=== PATIENT | female | born 1970 | race Caucasian/White ===

== ENCOUNTER → 2019-05-09 | Outpatient (REF) | payer BC ==
[2019-05-09 15:15] LABS: ALT/SGPT 19 U/L (12-78); BILIRUBIN,TOTAL 0.3 MG/DL (0.2-1.0); BLOOD UREA NITROGEN 11 MG/DL (7-18); CALCIUM LEVEL 8.9 MG/DL (8.5-10.1); CARBON DIOXIDE LEVEL 27 MEQ/L (21-32); CHLORIDE LEVEL 107 MEQ/L (98-107); CHOLESTEROL LEVEL 184 MG/DL (<200); CHOLESTEROL RISK RATIO 1.896 (<5); CREATININE FOR GFR 0.66 MG/DL (0.55-1.30); GLOMERULAR FILTRATION RATE > 60.0 (>51); GLUCOSE, FASTING 95 MG/DL (70-100); HDL CHOLESTEROL 97 MG/DL (>40); LDL CHOLESTEROL 72 MG/DL (<100); NON-HDL-C 87 MG/DL; POTASSIUM SERUM 4.4 MEQ/L (3.5-5.1); SODIUM LEVEL 142 MEQ/L (136-145); THYROID STIMULATING HORMONE 0.032 uIU/ML (0.358-3.740); TOTAL PROTEIN 6.9 GM/DL (6.4-8.2); TRIGLYCERIDES LEVEL 74 MG/DL (<150)
== END ==
LOC: M SFHCPLAZ 10:06
PROVIDERS: ATTEND Nurse Practitioner Adult Health
DX: Z00.00 Encounter for general adult medical examination without abnormal findings (principal); Z13.220 Encounter for screening for lipoid disorders

== ENCOUNTER → 2019-06-01 | Outpatient (CLI) | payer BC ==
--- NOTE | 2019-06-01 12:09 | REP ---
Clinical: Palpable thyroid. Technique: Real time long scale and color evaluation using linear high frequency transducer. Findings: Right thyroid lobe measures 5.8 x 2.5 x 2.3 cm and includes multiple nonspecific complex isoechoic and hypoechoic nodules including isoechoic lower pole nodule measuring 3.0 x 2.0 x 3.1 cm and complex hypoechoic mid/upper pole nodules measuring 1.4 x 0.9 x 0.8 cm and 1.2 x 1.0 x 0.7 cm. Left thyroid lobe measures 5.8 x 1.8 x 1.8 cm and includes multiple nonspecific complex isoechoic and hypoechoic nodules including isoechoic mid pole nodule measuring 0.8 x 0.6 x 0.7 cm and complex hypoechoic mid pole nodule measuring 1.4 x 1.1 x 0.7 cm. Isthmus measures 2.9 mm in width. Impression: Bilateral complex nodules. Electronically Signed by Scotty Gastelum MD 06/01/2019 12:01 P
== END ==
LOC: M RAD 11:12
PROVIDERS: ATTEND Nurse Practitioner Adult Health
DX: E07.9 Disorder of thyroid, unspecified (principal)

== ENCOUNTER → 2019-07-19 | Outpatient (REF) | payer BC ==
[2019-07-19 18:21] LABS: FREE T4 0.97 NG/DL (0.76-1.46); THYROID STIMULATING HORMONE 0.059 uIU/ML (0.358-3.740)
== END ==
LOC: M LABDRAW1 16:48
PROVIDERS: ATTEND Internal Medicine Endocrinology, Diabetes & Metabolism
DX: E05.20 Thyrotoxicosis with toxic multinodular goiter without thyrotoxic crisis or storm (principal)

== ENCOUNTER → 2019-08-21 | Outpatient (REF) | payer BC | LOC: M LABDRAW1 15:23 | PROVIDERS: ATTEND Internal Medicine Endocrinology, Diabetes & Metabolism | DX: E05.20 Thyrotoxicosis with toxic multinodular goiter without thyrotoxic crisis or storm (principal) ==

== ENCOUNTER → 2019-09-04 | Outpatient (REF) | payer BC | LOC: M LAB REF 18:37 | PROVIDERS: ATTEND Internal Medicine Endocrinology, Diabetes & Metabolism | DX: E04.2 Nontoxic multinodular goiter (principal) ==

== ENCOUNTER → 2019-11-16 | Outpatient (REF) | payer BC ==
[2019-11-16 14:37] LABS: BLOOD UREA NITROGEN 10 MG/DL (7-18); CALCIUM LEVEL 9.6 MG/DL (8.5-10.1); CARBON DIOXIDE LEVEL 30 MEQ/L (21-32); CHLORIDE LEVEL 108 MEQ/L (98-107); CREATININE FOR GFR 0.58 MG/DL (0.55-1.30); FREE T4 0.93 NG/DL (0.76-1.46); GLOMERULAR FILTRATION RATE > 60.0 (>51); GLUCOSE, FASTING 103 MG/DL (70-100); POTASSIUM SERUM 4.3 MEQ/L (3.5-5.1); SODIUM LEVEL 140 MEQ/L (136-145); THYROID STIMULATING HORMONE 0.157 uIU/ML (0.358-3.740)
== END ==
LOC: M LABDRAW1 12:48
PROVIDERS: ATTEND Internal Medicine Endocrinology, Diabetes & Metabolism
DX: R59.0 Localized enlarged lymph nodes (principal); E05.20 Thyrotoxicosis with toxic multinodular goiter without thyrotoxic crisis or storm

== ENCOUNTER 2019-12-19 22:07 | Emergency (ER) | payer BC ==
[~2019-12-19] VITALS: Ht 162.6 cm; Wt 81.8 kg
[2019-12-19] MEDS ORDERED: NS 1,000 ML IV ONE (22:30)
--- NOTE | 2019-12-19 23:20 | REPVR ---
PROCEDURE INFORMATION: Exam: CT Abdomen And Pelvis Without Contrast Exam date and time: 12/19/2019 10:57 PM Age: 49 years old Clinical indication: Abdominal pain; Generalized; Additional info: Suprapubic pain, L low back pain, R/O stone vs pyelo TECHNIQUE: Imaging protocol: Computed tomography of the abdomen and pelvis without contrast. Radiation optimization: All CT scans at this facility use at least one of these dose optimization techniques: automated exposure control; mA and/or kV adjustment per patient size (includes targeted exams where dose is matched to clinical indication); or iterative reconstruction. COMPARISON: No relevant prior studies available. FINDINGS: Mediastinum: Small hiatal hernia. Liver: Normal. No mass. Gallbladder and bile ducts: Normal. No calcified stones. No ductal dilation. Pancreas: Normal. No ductal dilation. Spleen: Normal. No splenomegaly. Adrenals: Normal. No mass. Kidneys and ureters: Mild right hydronephrosis and hydroureter. No obstructing calculi. Stomach and bowel: Unremarkable. No obstruction. No mucosal thickening. Appendix: No evidence of appendicitis. Intraperitoneal space: Unremarkable. No free air. No significant fluid collection. Vasculature: Unremarkable. No abdominal aortic aneurysm. Lymph nodes: Unremarkable. No enlarged lymph nodes. Bladder: Unremarkable as visualized. Reproductive: Unremarkable as visualized. Bones/joints: Unremarkable. No acute fracture. Soft tissues: 10.7 x 12.3 x 13.5 cm([id number]) cystic mass in the pelvis with septations and calcifications. There is nodular soft tissue component to the cystic mass superiorly. The mass is likely ovarian in origin. IMPRESSION: Large predominantly cystic mass in the pelvis with septations and calcifications with soft tissue component. Findings suspicious for a cystic neoplasm which can be benign/malignant. Mass likely ovarian in origin. Mild right hydronephrosis and hydroureter. No obstructing calculi. Electronically signed by: Kyle Stewart On 12/19/2019 23:19:34 PM
[2019-12-19 23:22] LABS: BASO % 0.3 % (0.0-1.0); EOS # 0.1 10^3/uL (0.0-0.5); EOS % 0.7 % (0.0-3.0); HEMATOCRIT 41.8 % (36.0-47.0); HEMOGLOBIN 13.9 g/dl (12.0-15.5); LYMPH # 3.1 10^3/uL (1.5-5.0); LYMPH % 20.2 % (24.0-44.0); MEAN CORPUSCULAR HEMOGLOBIN 32.5 pg (27.0-33.0); MEAN CORPUSCULAR HGB CONC 33.3 g/dl (32.0-36.5); MEAN CORPUSCULAR VOLUME 97.7 fl (80.0-96.0); MONO # 0.8 10^3/uL (0.0-0.8); MONO % 5.2 % (0.0-5.0); NEUTROPHILS # 11.1 10^3/uL (1.5-8.5); NEUTROPHILS % 72.9 % (36.0-66.0); PLATELET COUNT, AUTOMATED 256 10^3/uL (150-450); RED BLOOD COUNT 4.28 10^6/uL (4.00-5.40); WHITE BLOOD COUNT 15.2 10^3/uL (4.0-10.0)
[2019-12-19] MEDS ORDERED: ACETAMINOPHEN TAB 650MG DOSE (2X325MG) PO ONE (23:30)
[2019-12-19 23:48] LABS: ALBUMIN 3.6 GM/DL (3.2-5.2); ALT/SGPT 17 U/L (12-78); BILIRUBIN,DIRECT < 0.1 MG/DL (0.0-0.2); BILIRUBIN,TOTAL 0.2 MG/DL (0.2-1.0); LIPASE 81 U/L (73-393); TOTAL PROTEIN 6.6 GM/DL (6.4-8.2)
[2019-12-20] MEDS ORDERED: KETOROLAC 30 MG/ML VIAL (J1885) IV ONE
[2019-12-20 00:43] VITALS: BP 137/84
--- NOTE | 2019-12-20 15:56 | ED PDOC ---
Post-Departure Follow-Up dr baer and pascual brennan faxed formal report of ct abd/p for fu Enmanuel Appiah MD Dec 20, 2019 15:55
== END 2019-12-20 00:45 | disposition home or self-care (01) ==
LOC: M ED 22:07 → EDBD 22:07 → M ED 12-20 00:45
DX: N13.30 Unspecified hydronephrosis (principal); N83.291 Other ovarian cyst, right side; F17.210 Nicotine dependence, cigarettes, uncomplicated
CPT/HCPCS: 74176; 80047; 80076; 81001; 83690; 85025; 96361; 96374; 99284; J1885

== ENCOUNTER → 2019-12-24 | Outpatient (CLI) | payer BC | LOC: M WHC 10:58 | PROVIDERS: ATTEND Obstetrics & Gynecology | DX: D27.9 Benign neoplasm of unspecified ovary (principal) ==

== ENCOUNTER → 2019-12-28 | Outpatient (CLI) | payer BC ==
--- NOTE | 2019-12-28 12:38 | REP ---
PELVIC ULTRASOUND: Real-time sonographic evaluation of the pelvis is performed utilizing transabdominal and endovaginal technique. The bladder measures 8.1 x 7.0 cm. The uterus measures 7.2 x 2.0 x 4.1 cm. Endometrial thickness is 3 mm. Right ovary appears normal in size and echotexture, with blood flow seen in the right ovary with duplex Doppler evaluation, with no torsion. Right ovary measures 2.1 x 1.0 x 1.5 cm. There is a complex cystic left ovary mass present. It measures 11.6 x 8.1 x 13.7 cm. There are multiple internal septations which are partially calcified and several of these septations are mildly thickened with internal blood flow. I suspect this represents benign or malignant cystic neoplasm. No free fluid is seen. IMPRESSION: Complex septated cystic mass left ovary measuring 11.6 x 8.1 x 13.7 cm. Several mildly thickened internal septations are seen which are partially calcified and demonstrate blood flow. 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 Recommend surgical resection.
== END ==
LOC: M WHC 10:36
PROVIDERS: ATTEND Obstetrics & Gynecology
DX: N83.202 Unspecified ovarian cyst, left side (principal)

== ENCOUNTER → 2020-01-11 | Day surgery (SDC) | payer BC ==
[~2020-01-11] VITALS: Ht 162.6 cm; Wt 78.0 kg
[~2020-01-11] MED LIST: BUPIVACAINE HCL 0.25% 30ML VIAL As Ordered ONE; ESMOLOL INJ 100MG/10ML VIAL As Ordered ONE; LIDOCAINE 1% MDV 20ML VIAL SQ PRN; LIDOCAINE 2% 100MG/5ML SDV (FOR ANES.) As Ordered ONE; LR 1,000 ML IV ONE; LR 1,000 ML IV SCH; MEPERIDINE INJ 25 MG/ML VIAL (J2175) IV PRN; METOCLOPRAMIDE INJ 10MG/2ML VIAL (J2765 PER 1) IV PRN; MIDAZOLAM INJ 2MG/2ML VIAL (J2250 PER 1MG) As Ordered ONE; ONDANSETRON 4MG/2ML VIAL (J2405 PER 1MG) As Ordered ONE; ONDANSETRON 4MG/2ML VIAL (J2405 PER 1MG) IV PRN; PHENYLephrine HCL 500 MCG/5 ML (100MCG/ML) SYRINGE (J2370) As Ordered ONE; ROCURONIUM BROMIDE 50 MG/5 ML VIAL As Ordered ONE; SUGAMMADEX SODIUM 500 MG/5 ML VIAL (BRIDION) As Ordered ONE; TRAM50TA2 PO; TYLE650T35 PO; dexameTHASONE 4 MG/ML 1ML VIAL (J1100 PER 1MG) As Ordered ONE; ePHEDrine SULFATE 25 MG/5 ML(5MG/ML) SYRINGE As Ordered ONE; fentaNYL 100 MCG/2 ML INJECTION (J3010) As Ordered ONE; fentaNYL 100 MCG/2 ML INJECTION (J3010) IV PRN; oxyCODONE 5MG TAB As Ordered ONE; propofoL 200 MG/20 ML VIAL As Ordered ONE
[2020-01-11 06:30] LABS: HEMATOCRIT 45.5 % (36.0-47.0); HEMOGLOBIN 15.4 g/dl (12.0-15.5); MEAN CORPUSCULAR HEMOGLOBIN 32.9 pg (27.0-33.0); MEAN CORPUSCULAR HGB CONC 33.8 g/dl (32.0-36.5); MEAN CORPUSCULAR VOLUME 97.2 fl (80.0-96.0); PLATELET COUNT, AUTOMATED 305 10^3/uL (150-450); RED BLOOD COUNT 4.68 10^6/uL (4.00-5.40); WHITE BLOOD COUNT 12.7 10^3/uL (4.0-10.0)
[2020-01-11] MEDS: oxyCODONE 5MG TAB PO PRN ×2 (09:07→09:42)
[2020-01-11 12:00] VITALS: BP 122/76
--- NOTE | 2020-01-12 22:49 | ROOPDOC ---
[facility] Report Of Operation Report of Operation DATE OF PROCEDURE: 01/11/20 PREOPERATIVE DIAGNOSIS: Right ovarian cyst. POSTOPERATIVE DIAGNOSIS: Left ovarian cyst. PROCEDURE PERFORMED: 1. Diagnostic operative laparoscopy with bilateral salpingo-oophorectomy. SURGEON: Gali Vidales MD EQUIPMENT SERVICE ASSOCIATE: Devyn Jett ANESTHESIA: General endotracheal anesthesia. SPECIMENS: Bilateral fallopian tubes, ovaries and cyst. ESTIMATED BLOOD LOSS: 5mL. IV FLUIDS: 500 mL of Lactated Ringer's solution. URINE OUTPUT: 50 mL. OPERATIVE FINDINGS: Remarkably enlarged left ovary with ovarian cyst and a normal appearing uterus and left adnexa. PREOPERATIVE ANTIBIOTICS: None. DESCRIPTION OF OPERATION: After informed consent was obtained and written consent was reviewed, the patient was brought to the operating room where she was placed under general endotracheal anesthesia. She was then placed in lithotomy position, was prepped and draped in the normal sterile fashion. A time out in the operating room was then performed identifying the patient, procedure be performed as well as drug allergies. A Rivas catheter was then placed and set to gravity. Attention was then turned to the patient's abdomen where 0.25% Marcaine was infused in the umbilical region. This area was incised, an 11 mm trocar and sleeve was advanced through this incision. A laparoscope was then placed revealing intra-abdominal placement and pneumoperitoneum was then obtained with CO2 gas. Two additional port sites were placed on each side of the umbilicus. These areas were infused 0.25% Marcaine. An incision was made in each one of these areas and 5 mm trocar and sleeves was advanced through each one of these incisions under direct visualization. Next, the abdomen was then surveyed with the above noted findings. Using a Harmonic Vladimir scalpel device, Intraoperative drainage of the left cyst was performed was then performed. The left fallopian tube was placed on traction and the left infundibulopelvic ligament was then cauterized and ligated using Harmonic Vladimir scalpel device with good hemostasis noted. Dissection was further created along the mesosalpinx releasi ng the adnexa. Next, the right fallopian tube was placed on traction and the rightinfundibulopelvic ligament was then cauterized and ligated using Harmonic Vladimir scalpel device with furthr dissection was further created along the mesosalpinx releasing the adnexa. good hemostasis noted Both specimens where then placed in an EndoCatch bag and was removed. The abdomen was then irrigated and suctioned. Surgical frod were inspected and noted be hemostatic. Instruments were then removed. The pneumoperitoneum was then released. The fascia at the umbilical port sites were closed with #0 Vicryl. The skin incisions of all three port sites were closed with #4-0 Monocryl and dressed with DERMABOND. The Rivas catheter was then removed. The patient was then taken out of lithotomy position, was awakened from general anesthesia, and taken to recovery in stable condition. Counts correct. Dr. Jett, my director surgical, played an essential role during the surgery. He assisted with port placement, removal of specimen and port site closures. GAIL VIDALES MD. Jan 12, 2020 22:49
== END | disposition home or self-care (01) ==
LOC: M SDC 06:04
PROVIDERS: ATTEND Obstetrics & Gynecology
DX: D27.1 Benign neoplasm of left ovary (principal); N83.201 Unspecified ovarian cyst, right side; N95.9 Unspecified menopausal and perimenopausal disorder; E04.1 Nontoxic single thyroid nodule; F17.218 Nicotine dependence, cigarettes, with other nicotine-induced disorders; Z79.899 Other long term (current) drug therapy
CPT/HCPCS: 36415; 58661; 85027; 86850; 86900; 86901; 88307; J1100; J2250; J2370; J2405; J3010

== ENCOUNTER → 2020-04-04 | Outpatient (CLI) | payer BC ==
[~2020-04-04] MED LIST changes: +ACET650T61 PO; -BUPIVACAINE HCL 0.25% 30ML VIAL As Ordered ONE; -ESMOLOL INJ 100MG/10ML VIAL As Ordered ONE; -LIDOCAINE 1% MDV 20ML VIAL SQ PRN; -LIDOCAINE 2% 100MG/5ML SDV (FOR ANES.) As Ordered ONE; -LR 1,000 ML IV ONE; -LR 1,000 ML IV SCH; -MEPERIDINE INJ 25 MG/ML VIAL (J2175) IV PRN; -METOCLOPRAMIDE INJ 10MG/2ML VIAL (J2765 PER 1) IV PRN; -MIDAZOLAM INJ 2MG/2ML VIAL (J2250 PER 1MG) As Ordered ONE; -ONDANSETRON 4MG/2ML VIAL (J2405 PER 1MG) As Ordered ONE; -ONDANSETRON 4MG/2ML VIAL (J2405 PER 1MG) IV PRN; -PHENYLephrine HCL 500 MCG/5 ML (100MCG/ML) SYRINGE (J2370) As Ordered ONE; -ROCURONIUM BROMIDE 50 MG/5 ML VIAL As Ordered ONE; -SUGAMMADEX SODIUM 500 MG/5 ML VIAL (BRIDION) As Ordered ONE; -TYLE650T35 PO; -dexameTHASONE 4 MG/ML 1ML VIAL (J1100 PER 1MG) As Ordered ONE; -ePHEDrine SULFATE 25 MG/5 ML(5MG/ML) SYRINGE As Ordered ONE; -fentaNYL 100 MCG/2 ML INJECTION (J3010) As Ordered ONE; -fentaNYL 100 MCG/2 ML INJECTION (J3010) IV PRN; -oxyCODONE 5MG TAB As Ordered ONE; -propofoL 200 MG/20 ML VIAL As Ordered ONE
[2020-04-04 11:29] LABS: THYROID STIMULATING HORMONE 0.028 uIU/ML (0.358-3.740); THYROXINE (T4) 8.4 UG/DL (4.5-12.0)
== END ==
LOC: M PLALAB 08:15
PROVIDERS: ATTEND Internal Medicine Endocrinology, Diabetes & Metabolism
DX: E05.20 Thyrotoxicosis with toxic multinodular goiter without thyrotoxic crisis or storm (principal)

== ENCOUNTER → 2020-06-16 | Outpatient (REF) | payer BC | LOC: M LAB REF 17:17 | PROVIDERS: ATTEND Physician Assistant | DX: D23.30 Other benign neoplasm of skin of unspecified part of face (principal); D23.62 Other benign neoplasm of skin of left upper limb, including shoulder ==

== ENCOUNTER → 2020-07-10 | Outpatient (REF) | payer BC | LOC: M PLALAB 13:59 | PROVIDERS: ATTEND Obstetrics & Gynecology | DX: Z12.4 Encounter for screening for malignant neoplasm of cervix (principal) ==

== ENCOUNTER → 2020-07-23 | Outpatient (CLI) | payer BC ==
--- NOTE | 2020-07-23 09:12 | REPMRS ---
Patient History No known family history of cancer. Taking hormonal contraceptives for 3 years. 3D TOMOSYNTHESIS WAS PERFORMED. [facility] lifetime risk for breast cancer is 10.5%. Volpara breast density b. Digital Woman Screen Mammo: July 23, 2020 - Exam #: [id number] Bilateral CC and MLO view(s) were taken. Technologist: Maria Teresa Guadalupe, Technologist Prior study comparison: August 30, 2012, digital mammo diagnostic bilateral, performed at [facility]. FINDINGS: There are scattered fibroglandular densities. There has been no change in the appearance of the mammogram from the prior studies. There is a mild amount of residual fibroglandular tissue which is fairly symmetric. There is no interval development of dominant mass, architectural distortion, or clustered microcalcification suggestive of malignancy. Assessment: BI-RADS/ACR category 1 mammogram. Negative Mammogram. Recommendation Routine screening mammogram in 1 year (for women over age 40). This mammogram was interpreted with the aid of an FDA-approved computer-aided dectection system. Electronically Signed By: Leo Roberts MD 07/23/20 0912
== END ==
LOC: M WHC 07:48
PROVIDERS: ATTEND Obstetrics & Gynecology
DX: Z12.31 Encounter for screening mammogram for malignant neoplasm of breast (principal); N64.89 Other specified disorders of breast

== ENCOUNTER → 2021-06-24 | Outpatient (CLI) | payer BC ==
--- NOTE | 2021-06-24 08:40 | REP ---
INDICATION: LOW BACK PAIN COMPARISON: None. TECHNIQUE: AP and frog-lateral views of the right hip FINDINGS: Generalized age-related changes include subtle increased sclerosis to the acetabulum with minimal joint space narrowing. No further overt osteoarthritic or significant degenerative changes are appreciated. No evidence for acute or healed injury. Surrounding soft tissues are normal. IMPRESSION: Mild generalized age-related changes. <Electronically signed by Scotty Gastelum > 06/24/21 [id number]
--- NOTE | 2021-06-24 08:42 | REP ---
INDICATION: LOW BACK PAIN COMPARISON: None. TECHNIQUE: AP, lateral, bilateral oblique, and coned-down views of the lumbar spine. FINDINGS: Alignment and lordosis maintained. Vertebral bodies are intact. No acute fracture/compression injury or subluxation. Mild early moderate multilevel degenerative changes include endplate sclerosis, minimal disc space narrowing, and facet hypertrophy primarily involving L4-5 and L5-S1.. IMPRESSION: Mild/moderate multilevel degenerative changes. No acute fracture/compression injury or subluxation. <Electronically signed by Scotty Gastelum > 06/24/21 0837
== END ==
LOC: M PLAIMG 08:02
PROVIDERS: ATTEND Nurse Practitioner Adult Health
DX: M54.5 Low back pain (principal); M25.551 Pain in right hip

== ENCOUNTER → 2022-01-13 | Outpatient (REF) | payer BC | LOC: M SFHCDERM 16:34 | PROVIDERS: ATTEND Nurse Practitioner Family | DX: C44.701 Unspecified malignant neoplasm of skin of unspecified lower limb, including hip (principal) ==

== ENCOUNTER → 2022-02-09 | Outpatient (REF) | payer BC | LOC: M LAB REF 17:45 | PROVIDERS: ATTEND Surgery | DX: L90.5 Scar conditions and fibrosis of skin (principal) ==

== ENCOUNTER → 2022-02-16 | Outpatient (REF) | payer BC ==
[2022-02-16 10:22] LABS: APPEARANCE, URINE HAZY (CLEAR); BACTERIA, URINE AUTO NEGATIVE (NEGATIVE); BILIRUBIN, URINE AUTO NEGATIVE (NEGATIVE); BLOOD, URINE BLOOD NEGATIVE (NEGATIVE); COLOR, URINE YELLOW (YELLOW); GLUCOSE, URINE (UA) AUTO NEGATIVE (NEGATIVE); KETONE, URINE AUTO NEGATIVE (NEGATIVE); LEUKOCYTE ESTERASE, URINE AUTO TRACE (NEGATIVE); MUCUS, URINE SMALL (NEGATIVE); NITRITE, URINE AUTO NEGATIVE (NEGATIVE); PROTEIN, URINE AUTO NEGATIVE (NEGATIVE); RBC, URINE AUTO 0 /HPF (0-3); SPECIFIC GRAVITY URINE AUTO 1.016 (1.002-1.035); SQUAMOUS EPITHELIAL CELL UR AU 1 /HPF (0-6); UROBILINOGEN, URINE AUTO 0.2 mg/dL (0.0-2.0); WBC, URINE AUTO 2 /HPF (0-3)
== END ==
LOC: M SFHCPLAZ 10:03
PROVIDERS: ATTEND Nurse Practitioner Adult Health
DX: R10.9 Unspecified abdominal pain (principal)

== ENCOUNTER → 2022-02-17 | Outpatient (CLI) | payer BC ==
[2022-02-17 10:22] LABS: HEMATOCRIT 44.6 % (36.0-47.0); HEMOGLOBIN 15.2 g/dl (12.0-15.5); MEAN CORPUSCULAR HEMOGLOBIN 33.1 pg (27.0-33.0); MEAN CORPUSCULAR HGB CONC 34.1 g/dl (32.0-36.5); MEAN CORPUSCULAR VOLUME 97.2 fl (80.0-96.0); PLATELET COUNT, AUTOMATED 311 10^3/uL (150-450); RED BLOOD COUNT 4.59 10^6/uL (4.00-5.40); WHITE BLOOD COUNT 8.7 10^3/uL (4.0-10.0)
[2022-02-17 10:37] LABS: ALBUMIN 3.8 GM/DL (3.2-5.2); ALT/SGPT 23 U/L (12-78); BILIRUBIN,TOTAL 0.4 MG/DL (0.2-1.0); BLOOD UREA NITROGEN 15 MG/DL (7-18); CALCIUM LEVEL 9.7 MG/DL (8.5-10.1); CARBON DIOXIDE LEVEL 28 MEQ/L (21-32); CHLORIDE LEVEL 109 MEQ/L (98-107); CHOLESTEROL LEVEL 182 MG/DL (<200); CHOLESTEROL RISK RATIO 2.022 (<5); CREATININE FOR GFR 0.56 MG/DL (0.55-1.30); FERRITIN 97 NG/ML (8-252); GLOMERULAR FILTRATION RATE > 60.0 (>51); GLUCOSE, FASTING 114 MG/DL (70-100); HDL CHOLESTEROL 90 MG/DL (>40); IRON (FE) 108 UG/DL (50-170); LDL CHOLESTEROL 78 MG/DL (<100); NON-HDL-C 92 MG/DL; PERCENT SATURATION 32.8 % (13.2-45.0); POTASSIUM SERUM 4.4 MEQ/L (3.5-5.1); SODIUM LEVEL 142 MEQ/L (136-145); THYROID STIMULATING HORMONE 0.403 uIU/ML (0.358-3.740); TOTAL IRON BINDING CAPACITY 329 UG/DL (250-450); TOTAL PROTEIN 7.2 GM/DL (6.4-8.2); TRIGLYCERIDES LEVEL 68 MG/DL (<150)
[2022-02-17 11:22] LABS: HEMOGLOBIN A1c 5.2 %
== END ==
LOC: M PLALAB 08:01
PROVIDERS: ATTEND Nurse Practitioner Adult Health
DX: Z00.00 Encounter for general adult medical examination without abnormal findings (principal); Z13.1 Encounter for screening for diabetes mellitus; T14.8XXA Other injury of unspecified body region, initial encounter; E04.1 Nontoxic single thyroid nodule

== ENCOUNTER → 2022-03-05 | Outpatient (CLI) | payer BC | LOC: M WHC 09:29 | PROVIDERS: ATTEND Nurse Practitioner Adult Health | DX: R10.9 Unspecified abdominal pain (principal) ==

== ENCOUNTER → 2022-10-26 | Outpatient (CLI) | payer BC ==
[2022-10-26 10:45] LABS: HEMATOCRIT 45.5 % (36.0-47.0); HEMOGLOBIN 14.8 g/dl (12.0-15.5); MEAN CORPUSCULAR HGB CONC 32.5 g/dl (32.0-36.5); MEAN CORPUSCULAR VOLUME 98.3 fl (80.0-96.0); PLATELET COUNT, AUTOMATED 310 10^3/uL (150-450); RED BLOOD COUNT 4.63 10^6/uL (4.00-5.40); WHITE BLOOD COUNT 8.2 10^3/uL (4.0-10.0)
[2022-10-26 11:16] LABS: ALBUMIN 4.1 G/DL (3.2-5.2); ALKALINE PHOSPHATASE 62 U/L (46-116); ALT/SGPT 17 U/L (7.0-40); AST/SGOT 19 U/L (<34); BILIRUBIN,TOTAL 0.3 MG/DL (0.3-1.2); BLOOD UREA NITROGEN 12 MG/DL (9-23); CALCIUM LEVEL 9.2 MG/DL (8.5-10.1); CARBON DIOXIDE LEVEL 28 MMOL/L (20-31); CHLORIDE LEVEL 106 MMOL/L (98-107); CREATININE FOR GFR 0.54 MG/DL (0.55-1.30); GLOMERULAR FILTRATION RATE > 60.0 (>51); GLUCOSE, FASTING 96 MG/DL (60-100); POTASSIUM SERUM 5.1 MMOL/L (3.5-5.1); SODIUM LEVEL 141 MMOL/L (136-145); TOTAL PROTEIN 7.5 G/DL (5.7-8.2)
[2022-10-26 11:17] LABS: FREE T4 1.16 NG/DL (0.89-1.76); THYROID STIMULATING HORMONE 0.297 uIU/ML (0.55-4.78)
== END ==
LOC: M PLALAB 08:55
PROVIDERS: ATTEND Nurse Practitioner Adult Health
DX: M54.6 Pain in thoracic spine (principal)

== ENCOUNTER → 2022-12-20 | Outpatient (CLI) | payer BC | LOC: M RAD 13:17 | PROVIDERS: ATTEND Nurse Practitioner Adult Health | DX: Z12.2 Encounter for screening for malignant neoplasm of respiratory organs (principal) ==